=== PATIENT | female | born 1945 | race Two or more races ===

== ENCOUNTER 2024-07-06 14:28 | Emergency (ER) | payer OTHER ==
[~2024-07-06] VITALS: Ht 154.9 cm; Wt 58.1 kg
[~2024-07-06 14:28] MED LIST: LIPITOR20 MG
[2024-07-06] MEDS ORDERED: COZAAR25 MG PO (15:31)
[2024-07-06] MEDS ORDERED: PLAVIX75 MG (15:31)
[2024-07-06] MEDS ORDERED: CRESTOR40 MG PO (15:31)
[2024-07-06] MEDS ORDERED: TOPROL XL25 M1 (15:31)
[2024-07-06] MEDS ORDERED: CHILDREN'S ASPI81 MG PO (15:31)
[2024-07-06] MEDS ORDERED: NORVASC2.5 M1 PO (15:31)
[2024-07-06] MEDS ORDERED: KETOROLAC TROMETHAMINE 60 MG VIAL IM STA (16:41)
[2024-07-06] MEDS ORDERED: DEXAMETHASONE SODIUM PHOSPHATE 4 MG/ML VIAL IM STA (16:42)
[2024-07-06] MEDS ORDERED: KETOROLAC TROMETHAMINE 60 MG VIAL IM ONE (16:58)
[2024-07-06] MEDS ORDERED: DEXAMETHASONE SODIUM PHOSPHATE 4 MG/ML VIAL ONE (16:58)
== END 2024-07-06 19:02 | disposition home or self-care (01) ==
LOC: ER 14:30
DX: M54.50 Low back pain, unspecified (principal); M85.88 Other specified disorders of bone density and structure, other site
CPT/HCPCS: 72100; 96372; 99283; J1100; J1885

== ENCOUNTER 2024-07-14 11:15 | Emergency (ER) | payer OTHER ==
[~2024-07-14] VITALS: Ht 154.9 cm; Wt 58.1 kg
[~2024-07-14 11:15] MED LIST changes: +CHILDREN'S ASPI81 MG PO; +COZAAR25 MG PO; +CRESTOR40 MG PO; +NORVASC2.5 M1 PO; +PLAVIX75 MG; +TOPROL XL25 M1
[2024-07-14 15:48] LABS: HEMOGLOBIN 15.1 g/dL (12.0-15.00); MEAN CELL VOLUME 89.8 fL (80.00-100.00); MEAN CORPUSCULAR HEMOGLOBIN 30.9 pg (27.00-32.0); MEAN CORPUSCULAR HGB CONC 34.4 g/dl (32.0-36.0); PLATELET COUNT 260 K/uL (150-450); RED CELL DISTRIBUTION WIDTH 14.2 % (11.5-14.5)
[2024-07-14 18:04] LABS: URINE APPEARANCE Clear; URINE BILIRRUBIN Negative (NEGATIVE); URINE BLOOD Small; URINE COLOR Yellow; URINE GLUCOSE Negative (NEGATIVE); URINE KETONE Negative (NEGATIVE); URINE LEUKOCYTE Negative; URINE NITRATE Negative; URINE PROTEIN Trace (NEGATIVE); URINE UROBILINOGEN 0.2 E.U./dl
[2024-07-14 18:11] LABS: URINE BACTERIA 51.4 uL (0.0-1933); URINE EPITHELIAL CELLS 7.4 uL (0.0-38.8); URINE RBC 11.3 uL (0.0-20.8); URINE WBC 12.4 uL (0.0-23.2)
[2024-07-14 18:44] LABS: URINE CAST 0.44 uL (0.0-1.40)
== END 2024-07-14 19:32 | disposition home or self-care (01) ==
LOC: ER 11:18
PROVIDERS: Preventive Medicine Public Health & General Preventive Medicine
DX: M54.9 Dorsalgia, unspecified (principal); Z20.822 Contact with and (suspected) exposure to COVID-19

== ENCOUNTER 2025-02-04 10:46 | Outpatient (CLI) | payer OTHER | END 2025-02-04 10:49 | disposition home or self-care (01) | LOC: MAMO-SONO 10:46 | PROVIDERS: ATTEND Internal Medicine Cardiovascular Disease | DX: N60.11 Diffuse cystic mastopathy of right breast (principal); N60.12 Diffuse cystic mastopathy of left breast; Z12.31 Encounter for screening mammogram for malignant neoplasm of breast ==

== ENCOUNTER 2025-02-18 10:59 | Outpatient (CLI) | payer OTHER | END 2025-02-18 11:00 | disposition home or self-care (01) | LOC: NUCLEAR 10:59 | PROVIDERS: ATTEND Internal Medicine Cardiovascular Disease | DX: M81.0 Age-related osteoporosis without current pathological fracture (principal) ==